=== PATIENT | female | born 1940 | race Caucasian/White ===

== ENCOUNTER 2018-08-31 10:30 | Emergency (ER) | payer BC, OTHER ==
[~2018-08-31] VITALS: Ht 165.1 cm; Wt 71.4 kg
[~2018-08-31 10:30] MED LIST: AMLO-272 PO; HYDR12.5 PO; LEVO0.1218 PO
[2018-08-31 10:37] VITALS: BP 162/65
--- NOTE | 2018-08-31 10:45 | NUR ---
A 78 YO F BIB SELF W/ C/O INTERMITTENT PRODUCTIVE COUGH X 1 WEEK. WITH WHITE/ CLEAR PHLEGM NOTED UPON COUGHING INTERMITTENTLY. PT REPORTS THAT SHE WENT TO THE ER AND RECEIVED Z-PACK , WHICH SHE FINISHED ON THURSDAY AND COUGH MEDICINE. PT STATES THAT SHE STILL IS NOT FEELING WELL/HERSELF. RR EVEN AND UNLABORED. LUNGS BL CLEAR. DENIES N/V/D. REPORTS FEELING FEVERISH, BUT HAS NOT HAD ANY FEVERS. AFEBRILE AT THIS TIME. SYMMETRICAL CHEST RISE NOTED. DENIES ANY CHEST PAIN. ER MD MADE AWARE. SAFETY PRECAUTIONS IN PLACE. WILL CONTINUE TO MONITOR. HOB ELEVATED.
[2018-08-31] MEDS ORDERED: KETOROLAC 30 MG/ML VIAL IVP ONE (11:10)
[2018-08-31] MEDS ORDERED: NACL 0.9% 1,000 ML IV ONE (11:10)
--- NOTE | 2018-08-31 11:28 | NUR ---
XRAY AT BEDSIDE
[2018-08-31 11:29] LABS: BASOPHILS % (AUTO) 0.4 % (0.0-2.0); EOSINOPHILS # (AUTO) 0.1 K/uL (0-0.4); EOSINOPHILS % (AUTO) 1.8 % (0.0-4.0); HEMATOCRIT 40.7 % (36-48); HEMOGLOBIN 13.5 g/dL (12.0-16.0); LYMPHOCYTES # (AUTO) 2.6 K/uL (2.5-16.5); LYMPHOCYTES % (AUTO) 38.5 % (20.5-51.1); MEAN CORPUSCULAR HEMOGLOBIN 30 pg (27-31); MEAN CORPUSCULAR HGB CONC 33 g/dL (33-37); MEAN CORPUSCULAR VOLUME 90.2 fL (80-94); MONOCYTES # (AUTO) 0.5 K/uL (0.8-1.0); MONOCYTES % (AUTO) 7.7 % (1.7-9.3); NEUTROPHILS # (AUTO) 3.6 K/uL (1.8-7.7); NEUTROPHILS % (AUTO) 51.6 % (42.2-75.2); PLATELET COUNT (AUTO) 302 K/uL (140-450); RED BLOOD CELL COUNT(AUTO) 4.51 MIL/uL (4.20-5.40); RED CELL DISTRIBUTION WIDTH 13.1 % (11.6-13.7); WHITE BLOOD COUNT (AUTO) 6.9 K/uL (4.8-10.8)
--- NOTE | 2018-08-31 11:33 | NUR ---
XRAY AT BEDSIDE AT THIS TIME
[2018-08-31 11:41] LABS: ALBUMIN 3.7 g/dL (3.4-5.0); ANION GAP 12.7 (8-16); ASPARTATE AMINOTRANSFERASE 21 U/L (15-37); CARBON DIOXIDE 29.8 mmol/L (21-32); CHLORIDE 106 mmol/L (98-107); CREATININE 0.7 mg/dL (0.6-1.3); GLUCOSE 91 mg/dL (74-106); POTASSIUM 3.5 mmol/L (3.5-5.1); SODIUM SERUM 145 mmol/L (136-145); TOTAL BILIRUBIN 0.4 mg/dL (0.0-1.0); UREA NITROGEN, BLOOD 10 mg/dL (7-18)
--- NOTE | 2018-08-31 11:43 | NUR ---
PT. STATES " I DO NOT HAVE ANY PAIN" PT. REFUSED MEDICATION. ER MD TYSON MADE AWARE.
--- NOTE | 2018-08-31 12:40 | NUR ---
PT. RESTING COMFORTABLY IN BED, RR EVEN AND UNLABORED. PRODUCTIVE COUGH NOTED. HOB ELEVATED. PT. STATES " I FEEL GOOD". WILL CONTINUE TO MONITOR
[2018-08-31 13:10] VITALS: BP 141/64
--- NOTE | 2018-08-31 13:10 | NUR ---
Patient discharged with v/s stable. Written and verbal after care instructions given and explained. Patient alert, oriented and verbalized understanding of instructions. Ambulatory with steady gait. All questions addressed prior to discharge. ID band removed. Patient advised to follow up with PMD. Rx of PRECIOUS ISIDRO given. Patient educated on indication of medication including possible reaction and side effects. Opportunity to ask questions provided and answered.
== END 2018-08-31 13:10 | disposition home or self-care (01) ==
LOC: MED 10:30
DX: B34.9 Viral infection, unspecified (principal); J40 Bronchitis, not specified as acute or chronic; I10 Essential (primary) hypertension; E03.9 Hypothyroidism, unspecified; Z90.49 Acquired absence of other specified parts of digestive tract; Z90.710 Acquired absence of both cervix and uterus; Z79.899 Other long term (current) drug therapy; Z85.038 Personal history of other malignant neoplasm of large intestine
CPT/HCPCS: 36415; 71045; 80053; 85025; 93005; 96360; 99284; J7030; Q0092; J1885

== ENCOUNTER 2023-03-25 09:36 | Emergency (ER) | payer BC, OTHER ==
[~2023-03-25] VITALS: Ht 167.6 cm; Wt 70.8 kg
[~2023-03-25 09:36] MED LIST changes: -LEVO0.1218 PO; +LEVO0.1219 PO
[2023-03-25 09:47] VITALS: BP 157/73; PULSE 100; RESP 20; TEMP 97.8; O2SAT 99
[2023-03-25] MEDS ORDERED: ATA25 PO ×2 (10:25→10:50)
[2023-03-25] MEDS ORDERED: KEN.1C TP ×2 (10:25→10:50)
[2023-03-25] MEDS ORDERED: PRED50TA2 PO ×3 (10:25→11:08)
[2023-03-25 10:40] VITALS: BP 157/73; PULSE 100; RESP 20; TEMP 97.8; O2SAT 99
== END 2023-03-25 10:40 | disposition home or self-care (01) ==
LOC: MED 09:36
DX: L30.9 Dermatitis, unspecified (principal); E03.9 Hypothyroidism, unspecified; I10 Essential (primary) hypertension; Z79.899 Other long term (current) drug therapy
CPT/HCPCS: 99283